=== PATIENT | female | born 2000 | race African-American/Black ===

== ENCOUNTER 2024-03-19 15:42 | Emergency (ER) | payer OTHER, SELFPAY ==
[2024-03-19 16:14] LABS: Bilirubin Neg (Negative); Blood, Urine 150 (Negative); Clarity Clear (Clear); Glucose, Urine (Dipstick) Normal (Negative); Ketone, Urine Negative (Negative); Leukocyte 500 (Negative); Nitrite Negative (Negative); Protein, Urine (Dipstick) 15 mg/dl (Neg-Trace); Specific Gravity, Urine 1.005 (1.005-1.030); Urobilinogen Normal mg/dL (Less than 2)
[2024-03-19 16:17] LABS: Pregnancy Test - Urine (BHCG) Negative (Negative); Pregu Control Background? CLEAR/WHITE (CLR/WHITE); Pregu Control Bar Appear? YES (CONTROL BAR); Specific Gravity 1.005 (1.002-1.036)
[2024-03-19 18:05] LABS: CAUTI Indications for Culture Acute Hematuria
[2024-03-19 18:08] LABS: RBC/HPF 0-3 HPF (0-3); Squamous Epithelial 0-3 HPF (0-3)
[2024-03-19 18:09] LABS: Bacteria/HPF None Seen HPF (None Seen)
[2024-03-19 18:10] LABS: Urine Culture Reflex Yes Yes
== END 2024-03-19 16:55 | disposition home or self-care (01) ==
LOC: CSHERS 15:42
DX: N39.0 Urinary tract infection, site not specified (principal)
CPT/HCPCS: 81001; 81025; 87086; 99283